=== PATIENT | female | born 1960 | race Caucasian/White ===

== ENCOUNTER → 2018-12-01 | Outpatient (CLI) | payer MEDICARE ==
[2018-12-01 19:31] LABS: HEMOGLOBIN 15.9 g/dl (12.0-15.5); MEAN CORPUSCULAR HEMOGLOBIN 28.5 pg (27.0-33.0); MEAN CORPUSCULAR HGB CONC 33.8 g/dl (32.0-36.5); MEAN CORPUSCULAR VOLUME 84.2 fl (80.0-96.0); PLATELET COUNT, AUTOMATED 236 10^3/uL (150-450); RED BLOOD COUNT 5.58 10^6/uL (4.00-5.40); WHITE BLOOD COUNT 8.2 10^3/uL (4.0-10.0)
[2018-12-01 19:42] LABS: ALBUMIN 3.8 GM/DL (3.2-5.2); ALT/SGPT 31 U/L (12-78); BILIRUBIN,TOTAL 0.2 MG/DL (0.2-1.0); BLOOD UREA NITROGEN 15 MG/DL (7-18); CALCIUM LEVEL 8.9 MG/DL (8.5-10.1); CARBON DIOXIDE LEVEL 24 MEQ/L (21-32); CHLORIDE LEVEL 105 MEQ/L (98-107); CREATININE FOR GFR 0.64 MG/DL (0.55-1.30); FREE T4 0.87 NG/DL (0.76-1.46); GLOMERULAR FILTRATION RATE > 60.0 (>51); GLUCOSE, FASTING 281 MG/DL (70-100); POTASSIUM SERUM 4.2 MEQ/L (3.5-5.1); SODIUM LEVEL 140 MEQ/L (136-145); THYROID STIMULATING HORMONE 0.837 uIU/ML (0.358-3.740); TOTAL PROTEIN 6.8 GM/DL (6.4-8.2)
[2018-12-01 19:43] LABS: TOTAL 25(OH) VITAMIN D 31.5 NG/ML (30.0-100.0)
[2018-12-01 19:44] LABS: LUTEINIZING HORMONE 10.6 mIU/mL; PROLACTIN 3.4 NG/ML; VITAMIN B12 LEVEL 474 PG/ML
[2018-12-01 19:45] LABS: FOLATE 14.9 NG/ML; FOLLICLE STIMULATING HORMONE 22.7 mIU/mL
== END ==
LOC: M LABDRWAD 16:03
DX: R53.83 Other fatigue (principal); G31.84 Mild cognitive impairment of uncertain or unknown etiology; E66.01 Morbid (severe) obesity due to excess calories
CPT/HCPCS: 36415; 80053; 82306; 82607; 82746; 83001; 83002; 84146; 84439; 84443; 85027; G0463

== ENCOUNTER → 2018-12-13 | Outpatient (REF) | payer MEDICARE ==
[2018-12-13 12:38] LABS: CORTISOL AM 6.5 UG/DL (4.3-22.4)
== END ==
LOC: M LABDRWAD 10:17
PROVIDERS: ATTEND Physical Medicine & Rehabilitation
DX: R53.83 Other fatigue (principal); R41.89 Other symptoms and signs involving cognitive functions and awareness; E11.65 Type 2 diabetes mellitus with hyperglycemia; E03.9 Hypothyroidism, unspecified

== ENCOUNTER → 2018-12-13 | Outpatient (REF) | payer MEDICARE ==
[2018-12-13 09:41] LABS: HEMOGLOBIN A1c 8.1 %
[2018-12-13 09:58] LABS: BLOOD UREA NITROGEN 15 MG/DL (7-18); CALCIUM LEVEL 8.9 MG/DL (8.5-10.1); CARBON DIOXIDE LEVEL 30 MEQ/L (21-32); CHLORIDE LEVEL 104 MEQ/L (98-107); CHOLESTEROL LEVEL 183 MG/DL (<200); CHOLESTEROL RISK RATIO 4.066 (<5); CREATININE FOR GFR 0.65 MG/DL (0.55-1.30); GLOMERULAR FILTRATION RATE > 60.0 (>51); GLUCOSE, FASTING 187 MG/DL (70-100); HDL CHOLESTEROL 45 MG/DL (>40); LDL CHOLESTEROL 82 MG/DL (<100); NON-HDL-C 138 MG/DL; POTASSIUM SERUM 3.9 MEQ/L (3.5-5.1); SODIUM LEVEL 141 MEQ/L (136-145); TRIGLYCERIDES LEVEL 282 MG/DL (<150)
== END ==
LOC: M SFHCADAM 07:52
PROVIDERS: ATTEND Physician Assistant Medical
DX: E11.65 Type 2 diabetes mellitus with hyperglycemia (principal); E03.9 Hypothyroidism, unspecified